=== PATIENT | female | born 1975 | race American Indian/Alaskan Native ===

== ENCOUNTER 2018-02-11 16:08 | Emergency (ER) | payer SELFPAY ==
[2018-02-11 16:55] LABS: Bilirubin,Urine NEG (Negative); Blood,Urine LG (Negative); Color,Urine Red (Yellow); Mucus,Urine 2+ /HPF; Urobilinogen,Urine < 2.0 mg/dL (<2.0)
[2018-02-11 16:56] LABS: HCG Qualitative,Urine Negative (Negative); RBC,Urine > 182.0 /HPF (0.0-6.0)
[2018-02-11 17:11] LABS: Hemoglobin 13.5 gm/dl (10.1-14.3); Lymphocytes % (Auto) 23.3 % (13.4-35.0); Mean Corpuscular HGB Conc 34 % (30-34); Mean Corpuscular Hemoglobin 29 pg (28-32); Mean Corpuscular Volume 86 fl (79-97); Monocytes % (Auto) 8.8 % (0.0-7.3); Red Blood Count 4.67 M/mm3 (3.65-5.03); Red Cell Distribution Width 13.5 % (13.2-15.2)
[2018-02-11 17:12] LABS: Basophils # (Auto) 0.1 K/mm3 (0.0-0.1); Basophils % (Auto) 0.8 % (0.0-1.8); Eosinophils # (Auto) 0.1 K/mm3 (0.0-0.4); Eosinophils % (Auto) 2.1 % (0.0-4.3); Lymphocytes # (Auto) 1.4 K/mm3 (1.2-5.4); Monocytes # (Auto) 0.5 K/mm3 (0.0-0.8)
[2018-02-11 17:13] LABS: Alanine Aminotransferase 7 units/L (7-56); Albumin 3.9 g/dL (3.9-5); BUN/Creatinine Ratio 13; Blood Urea Nitrogen 9 mg/dL (7-17); Calcium 9.1 mg/dL (8.4-10.2); Hemolysis Index 4
[2018-02-11] MEDS ORDERED: MORPHINE IV ONE ×2 (17:45→20:14)
[2018-02-11] MEDS ORDERED: ZOFRAN IV ONE (17:45)
[2018-02-11] MEDS ORDERED: TORADOL IV ONE (17:45)
--- NOTE | 2018-02-11 17:49 | Emergency Department Report ---
ED Abdominal Pain HPI - General Chief Complaint: Abdominal Pain Stated Complaint: RIGHT ABD/LEG PAIN Time Seen by Provider: 02/11/18 17:39 Source: patient Mode of arrival: Ambulatory Limitations: No Limitations - History of Present Illness Initial Comments: Ms. Larose is a healthy 42-year-old female who presents with RUQ abdominal pain. No radiation. It feels like a knot in the area. Symptoms began with menstrual cramps 2 days ago. Menstrual cramps/Pelvic pain which have improved. Both legs felt numb transiently when she has a severe pelvic pain. She denies back pain. She denies paralysis. She denies bowel or bladder incontinence. MD Complaint: abdominal pain -: Gradual Radiation: RUQ Migration to: no migration Severity: severe Severity scale (0 -10): 10 Consistency: constant Improves With: nothing Worsens With: nothing - Related Data Previous Rx's Medication Instructions Recorded Last Taken Type Ibuprofen 800 mg PO Q6HR PRN #10 tablet 02/11/18 Unknown Rx oxyCODONE /ACETAMINOPHEN [Percocet 1 tab PO Q6HR PRN #20 tablet 02/11/18 Unknown Rx 5/325] Allergies Allergy/AdvReac Type Severity Reaction Status Date / Time No Known Allergies Allergy Unverified 02/11/18 16:27 ED Review of Systems ROS: Stated complaint: RIGHT ABD/LEG PAIN Other details as noted in HPI Comment: All other systems reviewed and negative Constitutional: denies: fever, malaise Respiratory: denies: cough Cardiovascular: denies: palpitations ED Past Medical Hx - Past Medical History Previous Medical History?: No - Surgical History Past Surgical History?: Yes Additional Surgical History: Tubal ligation - Social History Smoking Status: Current Every Day Smoker Substance Use Type: Marijuana - Medications Home Medications: Home Medications Medication Instructions Recorded Confirmed Last Taken Type Ibuprofen 800 mg PO Q6HR PRN #10 tablet 02/11/18 Unknown Rx oxyCODONE /ACETAMINOPHEN [Percocet 1 tab PO Q6HR PRN #20 tablet 02/11/18 Unknown Rx 5/325] ED Physical Exam - General Limitations: No Limitations General appearance: alert, in no apparent distress - Head Head exam: Present: atraumatic, normocephalic - Eye Eye exam: Present: normal appearance - ENT ENT exam: Present: mucous membranes moist - Neck Neck exam: Present: normal inspection - Respiratory Respiratory exam: Present: normal lung sounds bilaterally. Absent: respiratory distress, wheezes, rales, rhonchi - Cardiovascular Cardiovascular Exam: Present: regular rate, normal rhythm, normal heart sounds. Absent: systolic murmur, diastolic murmur, rubs, gallop - GI/Abdominal GI/Abdominal exam: Present: soft, normal bowel sounds. Absent: distended, guarding, rebound - Extremities Exam Extremities exam: Present: normal inspection - Back Exam Back exam: Present: normal inspection - Neurological Exam Neurological exam: Present: alert, oriented X3 - Psychiatric Psychiatric exam: Present: normal affect, normal mood - Skin Skin exam: Present: warm, dry, intact, normal color. Absent: rash ED Course Vital Signs 02/11/18 02/11/18 02/11/18 16:24 17:57 20:32 Temperature 98.5 F Pulse Rate 89 Respiratory 16 18 18 Rate Blood Pressure 116/72 O2 Sat by Pulse 100 Oximetry 02/11/18 20:42 Temperature Pulse Rate Respiratory 18 Rate Blood Pressure O2 Sat by Pulse 100 Oximetry ED Medical Decision Making - Lab Data Result diagrams: 02/11/18 16:30 02/11/18 16:30 Laboratory Results - last 24 hr 02/11/18 02/11/18 02/11/18 16:30 16:30 16:38 WBC 6.2 RBC 4.67 Hgb 13.5 Hct 40.0 MCV 86 MCH 29 MCHC 34 RDW 13.5 Plt Count 185 Lymph % (Auto) 23.3 [place] % (Auto) 8.8 H Eos % (Auto) 2.1 Baso % (Auto) 0.8 Lymph # 1.4 [place] # 0.5 Eos # 0.1 Baso # 0.1 Seg Neutrophils % 65.0 Seg Neutrophils # 4.0 Sodium 139 Potassium 4.0 Chloride 102.0 Carbon Dioxide 27 Anion Gap 14 BUN 9 Creatinine 0.7 Estimated GFR > 60 BUN/Creatinine Ratio 13 Glucose 72 Calcium 9.1 Total Bilirubin 0.50 AST 11 ALT 7 Alkaline Phosphatase 60 Total Protein 7.0 Albumin 3.9 Albumin/Globulin Ratio 1.3 Urine Color Red Urine Turbidity Clear Urine pH 5.0 Ur Specific [place] 1.025 Urine Protein 100 mg/dl Urine Glucose (UA) Neg Urine Ketones Tr Urine Blood Lg Urine Nitrite Neg Urine Bilirubin Neg Urine Urobilinogen < 2.0 Ur Leukocyte Esterase Neg Urine WBC (Auto) 5.0 Urine RBC (Auto) > 182.0 U Epithel Cells (Auto) 3.0 Urine Mucus 2+ Urine HCG, Qual Negative Vital Signs - 24 hr 02/11/18 02/11/18 02/11/18 16:24 17:57 20:32 Temperature 98.5 F Pulse Rate 89 Respiratory 16 18 18 Rate Blood Pressure 116/72 O2 Sat by Pulse 100 Oximetry 02/11/18 20:42 Temperature Pulse Rate Respiratory 18 Rate Blood Pressure O2 Sat by Pulse 100 Oximetry - Medical Decision Making Ms. Larose presents for right-sided abdominal pain. Appeared to have right lower quadrant tenderness. Normal appendix on CT. She does have gallbladder sludge. I suspect biliary colic. I referred her to general surgeon for evaluation for cholecystectomy. Prescribed Percocet and ibuprofen for pain relief. Critical care attestation.: If time is entered above; I have spent that time in minutes in the direct care of this critically ill patient, excluding procedure time. ED Disposition Clinical Impression: Biliary colic, Abdominal pain Disposition: TO HOME OR SELFCARE Is pt being admited?: No Does the pt Need Aspirin: No Condition: Stable Instructions: Biliary Colic (ED) Prescriptions: Ibuprofen 800 mg PO Q6HR PRN #10 tablet PRN Reason: Pain oxyCODONE /ACETAMINOPHEN [Percocet 5/325] 1 tab PO Q6HR PRN #20 tablet PRN Reason: Pain Referrals: SONG MENENDEZ MD [Staff Physician] - 3-5 Days Forms: Work/School Release Form(ED) Time of Disposition: 22:22
[2018-02-11 17:52] LABS: Platelet Count 185 K/mm3 (140-440)
--- NOTE | 2018-02-11 19:22 | Ultrasound Report ---
FINAL REPORT EXAM: US ABDOMEN COMPLETE HISTORY: right upper quadrant pain TECHNIQUE: Standard ultrasound of the abdomen PRIORS: None. FINDINGS: Examination of the gallbladder demonstrates layering sludge but no evidence for gallstones, distention, wall thickening, or pericholecystic fluid. No sonographic Martinez's sign is elicited. Common bile duct is normal in diameter measuring 3.1 mm. The liver is normal and homogeneous in echogenicity without intrahepatic biliary dilatation. There are 2 well-defined rounded hyperechoic homogeneous foci present in the right and left lobes of the liver. The right lobe focus measures 1.2 x 0.9 x 1.2 cm. The left lobe focus measures 1.0 cm. The pancreas is normal in thickness without focal abnormality or pancreatic duct dilatation. The spleen is normal in length measuring 8.2 cm and homogeneous in echogenicity without focal abnormalities. Examination of the kidneys demonstrates both to be normal in size and have normal cortical echogenicity and thickness. The right and left kidneys measure 10.5 cm and 9.6 cm in craniocaudal length, respectively. No evidence for calculi, hydronephrosis, or solid mass is seen in either kidney. The inferior vena cava and aorta are normal. Maximum diameter of the aorta is 1.1 cm in its proximal portion. IMPRESSION: 1. Layering sludge in the gallbladder 2. Two well-defined round hyperechoic foci in the right and left lobes of the liver. Ultrasound appearance suggest hemangiomas, however, this should be confirmed with other cross-sectional imaging such as CT or MRI.
--- NOTE | 2018-02-11 21:07 | Cat Scan Report ---
FINAL REPORT EXAM: CT ABDOMEN PELVIS W CON HISTORY: right lower quadrant pain TECHNIQUE: Standard enhanced CT of the abdomen and pelvis. Coronal and sagittal reconstruction was also performed. Delayed imaging through the kidneys and bladder was obtained. Contrast: 100 mL Omnipaque 300 given IV. PRIORS: None. FINDINGS: Within the abdomen, the liver demonstrates a 1.1 cm rounded hypodense focus in the right lobe (axial image 44). Two smaller hypodense foci are present in the dome of the left lobe (axial image 24, 26). Is multiple tiny is hypodensities are also scattered throughout both lobes. On delayed images, all of these become isodense to the liver suggesting hemangiomas. The spleen, pancreas, gallbladder, adrenal glands, and kidneys are unremarkable. No evidence for retroperitoneal or pelvic lymphadenopathy is seen. The bowel loops have normal caliber. No soft tissue mass, fluid collection, inflammatory change, or free air is seen within the abdomen or pelvis. The appendix is normal and located near the inferior margin of the right lobe of the liver. Within the pelvis, the bladder is unremarkable. The uterus is normal. The ovaries demonstrate bilateral cysts. On the right, this appears to be involuting cyst (axial image 128). On the left, this is a low-density thin-walled cysts measuring up to 2.7 cm in length (axial image 137). No evidence for mass or lymphadenopathy is seen in the pelvis. Images through the upper abdomen include the lung bases which are expanded and clear. Calcified granuloma in the left base is noted. Bony structures show no focal abnormalities and are intact. IMPRESSION: 1. no acute intra-abdominal process noted. Appendix is normal. 2. Bilateral ovarian cysts. On the right, the cyst is involuting. 3. Stable hypodensities in the liver which become isodense on delayed imaging. Findings are consistent with multiple small hemangiomas
[2018-02-11] MEDS ORDERED: PERCOCET 5/325 PO ONE (22:23)
[2018-02-11 22:48] VITALS: BP 126/87
== END 2018-02-11 22:45 | disposition home or self-care (01) ==
LOC: ED 16:08
DX: K80.50 Calculus of bile duct without cholangitis or cholecystitis without obstruction (principal); F17.200 Nicotine dependence, unspecified, uncomplicated; F12.10 Cannabis abuse, uncomplicated; Z98.51 Tubal ligation status
CPT/HCPCS: 36415; 74177; 76700; 80053; 81001; 81025; 85025; 96374; 96375; 96376; 99284; J1885; J2270; J2405; Q9967